=== PATIENT | male | born 1990 | race Caucasian/White ===

== ENCOUNTER 2020-02-25 22:44 | Emergency (ER) | payer MEDICAID ==
[~2020-02-25] VITALS: Ht 172.7 cm; Wt 72.0 kg
[2020-02-25 23:01] VITALS: BP 120/74
== END 2020-02-26 01:18 | disposition home or self-care (01) ==
LOC: ER 23:34
DX: R06.00 Dyspnea, unspecified (principal); J02.9 Acute pharyngitis, unspecified; R05 Cough; Z20.822 Contact with and (suspected) exposure to COVID-19
CPT/HCPCS: 71045; 87635; 93005; 99285

== ENCOUNTER 2021-04-19 11:10 | Emergency (ER) | payer MEDICAID, OTHER ==
[~2021-04-19] VITALS: Ht 175.3 cm; Wt 77.0 kg
[2021-04-19 12:06] LABS: CLARITY URINE CLEAR (CLEAR); COLOR URINE YELLOW (YELLOW); KETONES URINE TRACE (NEGATIVE); LEUKOCYTE ESTERASE URINE NEGATIVE (NEGATIVE); NITRITE URINE NEGATIVE (NEGATIVE); OCCULT BLOOD URINE NEGATIVE (NEGATIVE); PH URINE 6.5 (4.5-8.0); PROTEIN URINE NEGATIVE (NEGATIVE); SPECIFIC GRAVITY URINE 1.025 (1.005-1.030)
[2021-04-19 12:13] LABS: BASOPHILS % 1.2 % (0.0-2.0); EOSINOPHILS % 4.3 % (0.0-5.0); HEMATOCRIT. 43.3 % (42.0-52.0); HEMOGLOBIN. 14.5 g/dL (14.0-18.0); LYMPHOCYTES % 33.4 % (20.0-50.0); MEAN CORPUSCULAR HEMOGLOBIN 28.1 pg (28.0-32.0); MEAN CORPUSCULAR VOLUME 83.9 fL (80.0-94.0); MEAN PLATELET VOLUME 8.6 fl (7.4-10.4); MONOCYTES % 10.9 % (2.0-8.0); NEUTROPHILS % 50.2 % (40.0-76.0); PLATELET 239 x1000/uL (130-400); RED BLOOD CELL COUNT 5.16 mill/uL (4.7-6.1); RED CELL DISTRIBUTION WIDTH 13.1 % (11.6-14.6)
[2021-04-19 12:20] LABS: CHLORIDE 110 mEq/L (98-107)
[2021-04-19 13:56] VITALS: BP 135/65
[2021-04-21 04:09] LABS: NEISSERIA GONORRHOEAE NAA Negative (Negative)
== END 2021-04-19 13:58 | disposition home or self-care (01) ==
LOC: ER 11:10
DX: R10.31 Right lower quadrant pain (principal)
CPT/HCPCS: 36415; 74176; 80048; 81003; 85025; 87491; 87591; 99284

== ENCOUNTER 2021-05-08 13:54 | Emergency (ER) | payer MEDICAID ==
[~2021-05-08] VITALS: Ht 172.7 cm; Wt 74.0 kg
[2021-05-08 13:56] VITALS: BP 123/72
== END 2021-05-08 14:57 | disposition home or self-care (01) ==
LOC: ER 13:54
DX: R10.9 Unspecified abdominal pain (principal); Z53.21 Procedure and treatment not carried out due to patient leaving prior to being seen by health care provider; Z87.440 Personal history of urinary (tract) infections
CPT/HCPCS: 99282

== ENCOUNTER 2024-12-24 18:17 | Emergency (ER) | payer MEDICAID, OTHER ==
[~2024-12-24] VITALS: Ht 172.7 cm; Wt 80.0 kg
[2024-12-24 18:42] VITALS: TEMP 37.2; O2SAT 99
[2024-12-24 18:54] VITALS: O2SAT 96
[2024-12-24 20:15] VITALS: BP 121/69; PULSE 92; RESP 16
[2024-12-24] MEDS: DEXAMETHASONE 10 MG/ML VIAL IM ONE (20:15)
[2024-12-24] MEDS: METOCLOPRAMIDE HCL 10MG/2ML VIAL IM ONE (20:15)
[2024-12-24] MEDS: KETOROLAC 30MG/ML VIAL IM ONE (20:15)
== END 2024-12-24 22:54 | disposition left against medical advice (07) ==
LOC: ER 18:17
DX: R51.9 Headache, unspecified (principal)
CPT/HCPCS: 96372; 99284; J1100; J1885; J2765; Z7610